=== PATIENT | female | born 1975 | race Caucasian/White ===

== ENCOUNTER 2018-11-11 06:33 | Day surgery (SDC) | payer OTHER ==
[~2018-11-11] VITALS: Ht 152.4 cm; Wt 76.8 kg
[2018-11-11 07:46] VITALS: Ht 152.4 cm; Wt 76.8 kg
[2018-11-11 07:47] VITALS: BP 110/61; PULSE 60; RESP 18
[2018-11-11] MEDS ORDERED: OMEPRAZOLE PO (07:48)
[2018-11-11] MEDS ORDERED: FENTAnyl 50 MCG/ML VIAL ONE (09:01)
[2018-11-11] MEDS ORDERED: MIDAZOLAM 1 MG/ML 2 ML INJ ONE ×2 (09:02)
[2018-11-11 09:10] VITALS: BP 119/72; RESP 15
--- NOTE | 2018-11-12 07:17 | CONS ---
DATE OF ADMISSION: 11/11/2018 DATE OF CONSULTATION: 10/16/2018 PATIENT NAME: FATEMEH HUSSEIN Dear Dr. Grullon: I thank you very much for this kind referral. HISTORY OF PRESENT ILLNESS: Ms. Fatemeh Hussein is a 43-year-old female patient who has been referre d to me for further evaluation of dysphagia. The patient also complains of chronic heartburn. She h as been taking omeprazole without any relief. She is known to have had a hiatal hernia. No upper ab dominal pain. No history of peptic ulcer disease. Not on nonsteroidal anti-inflammatory agents. Ap petite is good. No weight loss. No history of gallstones or liver disease. No change in the bowel habit or rectal bleeding. No history of inflammatory bowel disease. Not a hypertensive or diabetic. No heart disease, lung problem or kidney disease. She has hyperlipidemia. SOCIAL HISTORY: Nonsmoker. No alcohol abuse. FAMILY HISTORY: No family history of gastrointestinal tract neoplasm. ALLERGIES: NO DRUG ALLERGIES. MEDICATIONS: Evans 3, omeprazole. PHYSICAL EXAMINATION: GENERAL: She is 5 feet tall and weighs 169 pounds. HEART: Normal heart sounds. LUNGS: Clear. ABDOMEN: Soft, no masses. Normal bowel sounds. NEUROLOGIC: Normal neurological exam. IMPRESSION: 1. Dysphagia. 2. Gastroesophageal reflux disease. 3. Hiatal hernia. 4. Hyperlipidemia. PLAN: Endoscopy for further evaluation. The procedure and possible complications are well explained to the patient and the family. They unde rstand and consent to the procedure. I thank you once again. With warmest personal regards, Dictated By: MARY RYDER/ALICIA Conf#: [id number] DID#: [id number] CC: MARY MAGAÑA MD;*EndCC*
== END 2018-11-11 11:09 | disposition home or self-care (01) ==
LOC: GIL 06:33
PROVIDERS: ATTEND Internal Medicine Gastroenterology
DX: K44.9 Diaphragmatic hernia without obstruction or gangrene (principal); K29.50 Unspecified chronic gastritis without bleeding; K21.0 Gastro-esophageal reflux disease with esophagitis
CPT/HCPCS: 43239; 88305; 88312; J2250; J3010; Z7610